=== PATIENT | female | born 2000 | race Caucasian/White ===

== ENCOUNTER 2023-09-06 20:32 | Emergency (ER) | payer BC, SELFPAY ==
[2023-09-06] VITALS (18 sets, daily range): BP systolic 111–123; BP diastolic 71–84; PULSE 92–105; RESP 18; TEMP 37; O2SAT 96–100; BMI 23.0
--- NOTE | 2023-09-06 20:43 | ED_ITS ---
HPI - Abdominal Pain General Time Seen by Provider: 20:43 Date Seen: 09/06/23 Chief Complaint: Abdominal Pain Stated Complaint: R side pain Time Seen by Provider: 09/06/23 20:42 Source: patient and RN notes reviewed Mode of arrival: ambulatory Limitations: no limitations History of Present Illness HPI narrative: This 22-year-old female comes in accompanied by family with concern of severe right upper quadrant abdominal pain. She has had pain for about 1 week, started more epigastric, maybe felt it more right mid abdomen for a while. She went to clinic on Thursday, no testing was done. She did have mac and cheese and ham for Easter dinner, feels this made her pain worse, is hanging onto her right upper quadrant in she points to her right upper quadrant where the pain is. No nausea vomiting, no diarrhea. She did use herbal laxative tea did have looser stools with that but this was expected. No fevers or chills. No history of constipation. She has had no abdominal surgery before. No urinary changes no history of kidney stones or UTIs. She is has some irregular spotting this past month, LMP was 08/08/2023. Pain was severe enough that she came to the ER tonight. When her pain is been severe, has felt some radiation into her chest and felt a little short of breath at times with this. No family history of gallbladder issues or cholecystectomy but patient sister has had her appendix out. MD elicited complaint: abdominal pain Related Data Home Medications Medication Instructions Recorded Confirmed No Known Home Medications 09/06/23 09/06/23 Allergies Allergy/AdvReac Type Severity Reaction Status Date / Time No Known Drug Allergies Allergy Verified 09/06/23 20:41 Review of Systems Status of ROS Reports: 6 or more systems reviewed and unremarkable except as noted in History and below [facility] Social History Smoking Status: Never smoker Do you use any of these nicotine containing products: None Second hand tobacco smoke exposure: No How often do you have a drink containing alcohol: never AUDIT-C Alcohol total score: 0 Non-prescribed substance use: denies use Exam Const: Vital Signs, click to edit/add: Vital Signs - 24 hr 09/06/23 20:35 09/06/23 20:51 09/06/23 21:12 Temperature 98.6 F Pulse Rate 96 Pulse Rate [Pulse Oximeter] 99 Respiratory Rate 18 Blood Pressure Blood Pressure [Ri ght Upper Arm] 118/72 Pulse Oximetry 98 98 100 Oxygen Delivery Me thod Room Air Room Air 09/06/23 21:13 09/06/23 21:15 09/06/23 21:48 Temperature Pulse Rate 97 105 H 102 H Pulse Rate [Pulse Oximeter] Respiratory Rate Blood Pressure 117/84 Blood Pressure [Ri ght Upper Arm] Pulse Oximetry 100 98 98 Oxygen Delivery Me thod 09/06/23 21:50 09/06/23 21:51 09/06/23 22:00 Temperature Pulse Rate 96 93 100 Pulse Rate [Pulse Oximeter] Respiratory Rate Blood Pressure 123/71 Blood Pressure [Ri ght Upper Arm] Pulse Oximetry 99 99 100 Oxygen Delivery Me thod 09/06/23 22:02 09/06/23 22:15 09/06/23 22:30 Temperature Pulse Rate 100 94 92 Pulse Rate [Pulse Oximeter] Respiratory Rate Blood Pressure 111/79 Blood Pressure [Ri ght Upper Arm] Pulse Oximetry 96 98 99 Oxygen Delivery Me thod 09/06/23 22:32 Temperature Pulse Rate 98 Pulse Rate [Pulse Oximeter] Respiratory Rate Blood Pressure 117/73 Blood Pressure [Ri ght Upper Arm] Pulse Oximetry 98 Oxygen Delivery Me thod 22-year-old female that is uncomfortable appearing, hanging onto her right upper abdomen. She is still very pleasant, alert and interactive. Pupils are equal round, sclera clear, conjugate gaze. Symmetrical facial function coming will speak in complete sentences. Lungs are clear, no wheezing or crackles. CV regular rate and rhythm, no murmur. Abdomen is soft but flat, definite right upper quadrant tenderness with guarding but no rebound, no organomegaly noted. Skin visualized without rash or jaundice. Documenting provider has reviewed patient's vital signs: yes Course Course ED Course: We will place an IV, initiate Toradol for pain management. We will do appropria te blood work. We will start with a limited abdominal ultrasound looking at her gallbladder. She certainly seems to be isolating pain right over her gallbladder. Will obtain lipase just to ensure no underlying pancreatitis. Reevaluation(s) Time of Reevaluation #1: 22:12 Reevaluation #1: Have reviewed that the preliminary report from the patient service representative is that the ultrasound is normal. Her white blood count is mildly elevated, chemistries are not showing any abnormality, urinalysis is not really pointing towards any etiology. She feels the Toradol helped some, is a bit more comfortable. We discussed further workup with imaging with a CT of her abdomen pelvis with IV contrast. They would like to proceed. Did review that there is radiation with this testing but given the length of her symptoms over this last week, the severity of presentation, do think it is reasonable to proceed. Time of Reevaluation #2: 23:07 Reevaluation #2: Reviewed with patient her CT report, provided her a copy. She has a dominant ri ght ovarian cyst. She is feeling better, pain improved. We did discuss that if her pain should return, would recommend ultrasound. Should she develop increasing abdominal pain associated with vomiting or fever, recommend re- evaluation as well. This time we will discharge to home for further outpatient observation. Will send a prescription of Toradol from [facility] Vital Signs Vital signs: Initial Vital Signs Temperature 98.6 F 09/06/23 20:35 Temperature Source Temporal Artery Scan 09/06/23 20:35 Pulse Rate 99 09/06/23 20:35 Respiratory Rate 18 09/06/23 20:35 Blood Pressure 118/72 09/06/23 20:35 Blood Pressure Mean 87 09/06/23 20:35 Blood Pressure Position Sitting 09/06/23 20:35 Pulse Oximetry 98 09/06/23 20:35 Oxygen Delivery Method Room Air 09/06/23 20:35 Vital Signs Temperature 98.6 F 09/06/23 20:35 Pulse Rate 99 09/06/23 20:35 Respiratory Rate 18 09/06/23 20:35 Blood Pressure 118/72 09/06/23 20:35 Pulse Oximetry 98 09/06/23 20:35 Oxygen Delivery Method Room Air 09/06/23 20:35 Temperature 98.6 F 09/06/23 20:35 Pulse Rate 98 09/06/23 22:32 Respiratory Rate 18 09/06/23 20:35 Blood Pressure 117/73 09/06/23 22:32 Pulse Oximetry 98 09/06/23 22:32 Oxygen Delivery Method Room Air 09/06/23 21:12 Medications Administered Medications: Generic Name Dose Route Start Last Admin Trade Name Freq PRN Reason Stop Dose Admin Sodium Chloride 1,000 mls @ 500 mls/hr 09/06/23 20:52 09/06/23 21:08 0.9 % Sodium Chloride 1000 Ml IV 09/06/23 22:51 500 mls/hr .Q2H NICOLE Administration Ketorolac Tromethamine 15 mg 09/06/23 20:51 09/06/23 21:08 Ketorolac 15 Mg/Ml Inj IVP 09/06/23 20:52 15 mg ONCE ONE Administration MDM - Abdominal Pain Lab Data Attestation: I reviewed the patient's lab results. Labs: Lab Results 09/06/23 09/06/23 Range/Units 20:45 21:00 WBC 11.58 H (4.50-11.00) K/uL RBC 4.46 (4.00-5.20) m/uL Hgb 13.0 (12.0-16.0) gm/dL Hct 38.3 (33.0-51.0) % MCV 86 (80-100) fL MCH 29 (26-34) pg MCHC 34 (32-36) gm/dL RDW Coeff of Carrie 11.9 (11.5-15.5) % Plt Count 348 (140-440) K/uL Neut % (Auto) 68.7 (42.0-72.0) % Lymph % (Auto) 20.6 (20-44) % [place] % (Auto) 8.3 (0.0-11.0) % Eos % (Auto) 1.6 (0.0-7.0) % Baso % (Auto) 0.6 (0.0-3.0) % Neut # (Auto) 8.00 H (1.7-7.0) K/uL Lymph # (Auto) 2.40 (0.90-2.90) K/uL [place] # (Auto) 1.00 H (0.00-0.90) K/UL Eos # (Auto) 0.20 (0.00-0.50) K/uL Baso # (Auto) 0.10 (0.00-0.30) K/uL Abs Immat Gran (auto) 0.00 (0.00-0.30) K/uL Imm/Tot Granulo (auto) 0.2 % Sodium 139 (135-149) mmol/L Potassium 3.6 (3.6-5.1) mmol/L Chloride 106 (96-114) mmol/L Carbon Dioxide 28 (20-32) mmol/L Anion Gap 5 L (7-15) mEq/L BUN 12 (5-24) mg/dL Creatinine 0.7 (0.5-1.5) mg/dL Estimated Creat Clear 106.05 Estimated GFR 127 ml/min Glucose 108 (60-115) mg/dL Calcium 9.6 (8.4-10.6) mg/dL Total Bilirubin 0.3 (0.1-1.5) mg/dL Direct Bilirubin 0.1 (0.0-0.5) mg/dL AST 20 (12-35) U/L ALT 13 (4-35) U/L Alkaline Phosphatase 71 (40-150) U/L Troponin I < 0.01 L (0.01-0.04) ng/mL C-Reactive Protein 1.8 H (0.5-1.0) mg/dL Total Protein 7.7 (6.0-8.3) g/dL Albumin 4.3 (3.3-5.0) g/dL Lipase 59 (23-300) U/L Urine Color Yellow (Yellow) Urine Appearance Clear (Clear) Urine pH 6.5 (5.0-8.5) Ur Specific Hernandez 1.025 (1.000-1.030) Urine Protein Negative (Negative) Urine Glucose (UA) Negative (Negative) Urine Ketones Trace A (Negative) Urine Blood Negative (Negative) Urine Nitrite Negative (Negative) Urine Bilirubin Negative (Negative) Urine Urobilinogen 0.2 (0.2-1.0) Ur Leukocyte Esterase Trace A (Negative) Urine RBC 0-2 (0-2) Urine WBC 5-10 A (0-5) Ur Squamous Epith Cells Few (None-Few) Urine Bacteria Few A (None) Urine Mucus Moderate A (None) Urine HCG, Qual Negative (Negative) Lab Acknowledgement Test Added Imaging Data US - abdomen: Attestation: I have reviewed the pertinent imaging results. Radiologist's impression: Patient: WON WATERS Facility:?[facility] Patient ID:?[id number] Site Patient ID:?[id number]. Site :?2002 Study:?US Abdomen RUQ-09/06/2023 9:59:04 PM Ordering Physician:CLARA HIGGINS M.D. Final Report: INDICATION: Right upper quadrant abdomen pain. TECHNIQUE: Ultrasound abdomen limited. Sonographic images of the right upper quadrant were obtained using valdovinos-scale and color Doppler images. COMPARISON: CT same day. FINDINGS: Liver: Normal in size and echotexture. No intrahepatic biliary dilatation. Gallbladder: Contracted gallbladder without shadowing stones. Normal wall thickness. No pericholecystic fluid. Common bile duct: 2 mm. Pancreas: Portions of the pancreas are obscured by bowel gas. Right kidney: Normal in size. Normal echotexture. No shadowing stones, or hydronephrosis. Vasculature: Proximal abdominal aorta and IVC are unremarkable. IMPRESSION: Unremarkable right upper quadrant ultrasound. Dictated by Dayne London MD @ 09/06/2023 10:17:51 PM (Electronic Signature) CT scan - abdomen: Attestation: I have reviewed the pertinent imaging results. Radiologist's impression: Patient: WON WATERS Facility:?[facility] Patient ID:?[id number] Site Patient ID:?[id number]. Site :?2002 Study:?CT Abdomen/Pelvis with 64cc [id number] contrast-09/06/2023 10:53:28 PM Ordering Physician:Kathy Higgins Final Report: INDICATION: Right upper quadrant abdominal pain TECHNIQUE: CT abdomen and pelvis acquired with 64 cc Isovue 370 IV contrast. COMPARISON: Ultrasound same day. FINDINGS: Lower chest: The visualized lower lungs are aerated. No pleural or pericardial effusion. ABDOMEN: Study is degraded by decreased signal to noise ratio throughout the exam which limits fine detail evaluation. Liver: Normal enhancement. No focal suspicious hepatic lesions. Gallbladder and biliary: Contracted gallbladder. Normal caliber bile ducts. Spleen: Normal size and enhancement. Pancreas: Normal enhancement without peripancreatic inflammatory changes or ductal dilatation. Adrenal glands: Normal adrenal glands. Kidneys and ureters: Normal enhancement. No radio-opaque calculi. No hydroureteronephrosis. GI tract: The stomach is relatively decompressed. Normal caliber small and large bowel loops. Normal appendix. Vascular structures: Normal caliber abdominal aorta. Lymph nodes: No lymphadenopathy in the abdomen or pelvis by size criteria. Peritoneum: Trace amount of free fluid in the pelvis, potentially physiologic. No free air or focal drainable collections. PELVIS: Genitourinary system: Urinary bladder is relatively decompressed. Dominant right ovarian cyst. SKELETAL STRUCTURES AND SOFT TISSUES: Calcified tiny sclerotic foci in the pelvis, statistically representing bone islands. IMPRESSION: 1. No discrete acute abdominal or pelvic process. No obstruction. No hydroureteronephrosis. Normal appendix. 2. Dominant right ovarian cyst. Please note that all CT scans at this facility use dose modulation, iterative reconstruction, and/or weight-based dosing when appropriate to reduce radiation dose to as low as reasonably achievable. Dictated by Dayne London MD @ 09/06/2023 11:01:11 PM (Electronic Signature) Discharge Plan Discharge Clinical Impression: Cyst of right ovary Abdominal pain Qualifiers: Abdominal location: right upper quadrant Qualified Code(s): R10.11 - Right upper quadrant pain Patient Disposition: Home, Self-Care Condition: Stable Instructions: Ovarian Cyst (ED), Abdominal Pain (ED) Additional Instructions: Can try the Toradol 10 mg, 1 tablet every 4-6 hours, not to exceed 4 per day, 20 prescribed. Can supplement with Tylenol 1000 mg 3 times a day. If your abdominal pain is becoming more severe or intensifying again, do recommend re- evaluation, would certainly consider obtaining pelvic ultrasound to ensure ovarian cyst is not worsening. Likewise, if you have worsening abdominal pain associated with vomiting or fever, need to be re-evaluated. Otherwise, follow up with primary provider for recheck after ED visit within the next 1-2 weeks, sooner if concerns. Activity Level: Activity as Tolerated Discharge Diet: Regular Prescriptions: No Action No Known Home Medications Follow Up/Referrals: Provider,Not a Local [Primary Care Provider] - Stand Alone Forms: [employer] Info Instructions
--- NOTE | 2023-09-06 20:51 | US_ITS ---
Patient: WON WATERS Facility:?[facility] Patient ID:?[id number] Site Patient ID:?[id number]. Site :?2002 Study:?US-Abdomen RUQ-09/06/2023 9:59:04 PM Ordering Physician:?DEBBY BURLESON M.D. Final Report: INDICATION: Right upper quadrant abdomen pain. TECHNIQUE: Ultrasound abdomen limited. Sonographic images of the right upper quadrant were obtained using valdovinos-scale and color Doppler images. COMPARISON: CT same day. FINDINGS: Liver: Normal in size and echotexture. No intrahepatic biliary dilatation. Gallbladder: Contracted gallbladder without shadowing stones. Normal wall thickness. No pericholecystic fluid. Common bile duct: 2 mm. Pancreas: Portions of the pancreas are obscured by bowel gas. Right kidney: Normal in size. Normal echotexture. No shadowing stones, or hydronephrosis. Vasculature: Proximal abdominal aorta and IVC are unremarkable. IMPRESSION: Unremarkable right upper quadrant ultrasound. Dictated by Dayne London MD @ 09/06/2023 10:17:51 PM Signed by:?Dayne London MD @09/06/2023 10:17:51 PM (Electronic Signature)
[2023-09-06 20:52] LABS: Appearance Urine Clear (Clear); Bilirubin Urine Negative (Negative); Blood Urine Negative (Negative); Color Urine Yellow (Yellow); Glucose Urine Negative (Negative); Ketones Urine Trace (Negative); Leukocyte Esterase Urine Trace (Negative); Nitrite Urine Negative (Negative); Protein Urine Negative (Negative); Specific Gravity Urine 1.025 (1.000-1.030); Urobilinogen Urine 0.2 (0.2-1.0); pH Urine 6.5 (5.0-8.5)
[2023-09-06 20:55] LABS: Ur HCG Qualitative* Negative (Negative)
[2023-09-06 21:00] LABS: RBC Urine 0-2 (0-2)
[2023-09-06 21:01] LABS: Bacteria Urine Few; Mucus Urine Moderate; Squamous Epithelial Cell Urine Few (None-Few)
[2023-09-06 21:07] LABS: Basophils Percent Auto 0.6 % (0.0-3.0); Eosinophils Percent Auto 1.6 % (0.0-7.0); Hematocrit 38.3 % (33.0-51.0); Immature Granulocytes Pct Auto 0.2 %; Lymphocytes Percent Auto 20.6 % (20-44); Mean Corpuscular HGB Conc 34 gm/dL (32-36); Mean Corpuscular Hemoglobin 29 pg (26-34); Mean Corpuscular Volume 86 fL (80-100); Monocytes Percent Auto 8.3 % (0.0-11.0); Neutrophils Percent Auto 68.7 % (42.0-72.0); Platelet Count* 348 K/uL (140-440); RDW Coefficient of Variation % 11.9 % (11.5-15.5); Red Blood Count 4.46 m/uL (4.00-5.20); White Blood Count* 11.58 K/uL (4.50-11.00)
[2023-09-06 21:08] LABS: Slide Review Reflex No
[2023-09-06] MEDS: 0.9 % SODIUM CHLORIDE 1000 ml 1,000 ML 500 ML IV (21:08)
[2023-09-06] MEDS: KETOROLAC 15 MG/ML inj IVP (21:08)
[2023-09-06 21:20] LABS: Albumin* 4.3 g/dL (3.3-5.0); Chloride* 106 mmol/L (96-114)
[2023-09-06 21:21] LABS: Potassium* 3.6 mmol/L (3.6-5.1); Sodium* 139 mmol/L (135-149)
[2023-09-06 21:23] LABS: Creatinine* 0.7 mg/dL (0.5-1.5); Est. Creatinine Clearance* 106.05; Estimated Glomerular Filt Rate 127 ml/min
[2023-09-06 21:24] LABS: Alanine Aminotransferase* 13 U/L (4-35); Alkaline Phosphatase* 71 U/L (40-150); Anion Gap 5 mEq/L (7-15); Aspartate Amino Transferase* 20 U/L (12-35); Bilirubin Direct* 0.1 mg/dL (0.0-0.5); Bilirubin Total* 0.3 mg/dL (0.1-1.5); Blood Urea Nitrogen* 12 mg/dL (5-24); Calcium* 9.6 mg/dL (8.4-10.6); Carbon Dioxide* 28 mmol/L (20-32); Glucose* 108 mg/dL (60-115); Lipase* 59 U/L (23-300); Total Protein* 7.7 g/dL (6.0-8.3)
[2023-09-06 21:27] LABS: C Reactive Protein* 1.8 mg/dL (0.5-1.0)
[2023-09-06 21:38] LABS: Troponin I* < 0.01 ng/mL (0.01-0.04)
--- NOTE | 2023-09-06 22:11 | CT_ITS ---
Patient: WON WATERS Facility:?[facility] Patient ID:?[id number] Site Patient ID:?[id number]. Site :?2002 Study:?CT-Abdomen/Pelvis with 64cc [id number] contrast-09/06/2023 10:53:28 PM Ordering Physician:Kathy Higgins Final Report: INDICATION: Right upper quadrant abdominal pain TECHNIQUE: CT abdomen and pelvis acquired with 64 cc Isovue 370 IV contrast. COMPARISON: Ultrasound same day. FINDINGS: Lower chest: The visualized lower lungs are aerated. No pleural or pericardial effusion. ABDOMEN: Study is degraded by decreased signal to noise ratio throughout the exam which limits fine detail evaluation. Liver: Normal enhancement. No focal suspicious hepatic lesions. Gallbladder and biliary: Contracted gallbladder. Normal caliber bile ducts. Spleen: Normal size and enhancement. Pancreas: Normal enhancement without peripancreatic inflammatory changes or ductal dilatation. Adrenal glands: Normal adrenal glands. Kidneys and ureters: Normal enhancement. No radio-opaque calculi. No hydroureteronephrosis. GI tract: The stomach is relatively decompressed. Normal caliber small and large bowel loops. Normal appendix. Vascular structures: Normal caliber abdominal aorta. Lymph nodes: No lymphadenopathy in the abdomen or pelvis by size criteria. Peritoneum: Trace amount of free fluid in the pelvis, potentially physiologic. No free air or focal drainable collections. PELVIS: Genitourinary system: Urinary bladder is relatively decompressed. Dominant right ovarian cyst. SKELETAL STRUCTURES AND SOFT TISSUES: Calcified tiny sclerotic foci in the pelvis, statistically representing bone islands. IMPRESSION: 1. No discrete acute abdominal or pelvic process. No obstruction. No hydroureteronephrosis. Normal appendix. 2. Dominant right ovarian cyst. Please note that all CT scans at this facility use dose modulation, iterative reconstruction, and/or weight-based dosing when appropriate to reduce radiation dose to as low as reasonably achievable. Dictated by Dayne London MD @ 09/06/2023 11:01:11 PM Signed by:?Dayne London MD @09/06/2023 11:01:11 PM (Electronic Signature)
== END 2023-09-06 23:29 | disposition home or self-care (01) ==
PROVIDERS: Emergency Provider Family Medicine
DX: N83.291 Other ovarian cyst, right side (principal)
CPT/HCPCS: 36415; 74177; 76705; 80053; 81001; 81025; 82248; 83690; 84484; 85025; 86140; 87086; 94761; 96374; 99284; J1885; J7030; Q9967

== ENCOUNTER 2025-04-19 15:42 | Outpatient (CLI) | payer BC, SELFPAY ==
[2025-04-19 22:40] LABS: GC DNA Amplified* NOT DETECTED (No Detected)
[2025-04-19 23:29] LABS: Chlamydia DNA Amplified* DETECTED (No Detected)
[2025-04-27 15:56] LABS: Pap Test Screened Manually Done
== END 2025-04-19 15:43 | disposition home or self-care (01) ==
PROVIDERS: Visit Provider Obstetrics & Gynecology
DX: Z12.4 Encounter for screening for malignant neoplasm of cervix (principal); Z11.3 Encounter for screening for infections with a predominantly sexual mode of transmission
CPT/HCPCS: 87491; 87591; 87624; 87625; 88141; 88142; 88175